=== PATIENT | female | born 1975 | race Caucasian/White ===

== ENCOUNTER 2018-02-15 10:29 | Emergency (ER) | payer OTHER ==
[~2018-02-15] VITALS: Ht 157.5 cm; Wt 64.2 kg
[2018-02-15 10:46] VITALS: BP 108/57; Ht 157.5 cm; Wt 64.2 kg
== END 2018-02-15 13:01 | disposition home or self-care (01) ==
LOC: ED 10:29
DX: M25.522 Pain in left elbow (principal); M25.521 Pain in right elbow; Z98.890 Other specified postprocedural states